=== PATIENT | male | born 2000 | race Caucasian/White ===

== ENCOUNTER 2020-03-29 16:21 | Emergency (ER) | payer MEDICAID, SELFPAY ==
[2020-03-29 16:23] VITALS: BP 145/85; PULSE 108; RESP 16; TEMP 36.6; O2SAT 96; BMI 40.1
--- NOTE | 2020-03-29 16:56 | ED.VIS.GEN ---
History of Present Illness Chief Complaint: Cellulitis Informant: Patient Onset: Days - 3 Narrative: 3 days worsening cellulitis and swelling left side after popping a pimple. States yesterday had a temp 99.7 he was seen in [place] ED. He states they started him on Bactrim. He was told to self extract at home states yesterday did extract more pus and yellow fluid. Status post 3 doses of Bactrim states symptoms worsening. No fevers today. He states he was diagnosed with MRSA a year ago and was in the hospital. Denies any other past medical history. Prior similar symptoms: Yes Past Medical History - Allergies and Home Meds Allergies/Adverse Reactions: Allergies No Known Allergies Allergy (Verified 03/29/20 16:22) Primary Care Physician: NOT,DEFINED [NON-STAFF] - Past Medical History: - - MRSA Smoking Status: Current every day smoker Review of Systems General: Denies: Chills, Fever, Sweats Eyes: Denies: Visual changes - bilaterally, Diplopia ENT: Reports: - - Left facial swelling. Denies: Rhinorrhea, Sore throat Cardiovascular: Denies: Chest pain, Palpitations Respiratory: Denies: Dyspnea, Cough, Dyspnea on exertion Gastrointestinal: Denies: Abdominal pain, Nausea, Vomiting, Diarrhea, Melena, Hematochezia Genitourinary: Denies: Dysuria, Hematuria, Frequency Musculoskeletal: Denies: Back pain, Extremity Pain Skin: Denies: Rash, Wounds Neurological: Denies: Headache, Weakness, Numbness Physical Exam Vital Signs/Narrative: Vital Signs Temp Pulse Resp BP Pulse Ox 03/29/20 16:23 97.9 F 108 H 16 145/85 H 96 Inital Vital Signs reviewed: Yes General: Well nourished, Well developed, No Acute Distress Head: Normocephalic, Atraumatic, - - Left maxillary 2 cm induration with the open comedone inferior this maxillary above the lip line. There is no active drainage. There is swelling to the inferior medial aspect of the eye with no fluctuance. No erythema in this area. Eyes: Perrl, EOMI ENT: Moist mucous membranes, No rhinorrhea Neck: Supple, Nontender Cardiovascular: Regular rhythm, No murmurs, Tachycardia Respiratory: No distress, CTA bilaterally, Chest nontender Abdomen: Soft, Nontender, Nondistended, Normal bowel sounds Back: Nontender, Normal Inspection Extremities: Nontender, No edema Skin: Normal color, No rash Neurological: Alert, Oriented x3, Cranial nerves II-XII grossly intact, Normal Strength, Normal Sensation Psychological: Normal affect, Normal Mood Diagnostic/Tx/Re-eval - Medical Decision Making Patient nontoxic there is slight tachycardia on arrival he is afebrile in the ED. Status post 3 doses of Bactrim. Discussed additional needle aspiration to create a track for which she agreed. He is not a diabetic not immunocompromised. History of MRSA, discussed with patient Bactrim covers for this. Discussed optimizing antibiotics due to slight worsening of symptoms were Keflex was added. He agrees. Needle aspiration performed there was no exudative drainage, he request additional I&D with 11 blade he understand the scarring risk due to having one a year ago and multiple ones on his arms. Straight incision was made at the level of the aspiration with no exudative return. Patient will finish his Bactrim Keflex will be added strict return precautions. All questions were answered. Procedure note: Verbal consent. Normal sterile conditions. Betadine prep was performed. 2 cc 1% lidocaine used for local analgesia. 18-gauge needle advanced 1 inch at 2:00 12:00 and 10:00 positions with no drainage. 11 blade with straight incision with no exudative drainage there was slight dark blood which was controlled. Patient tolerated procedure well. ED Disposition - Plan for ED Patient: Disposition: Home or Assisted Living Diagnosis: Left facial cellulitis Instructions: Cellulitis, ED Abscess Incision And Drainage Prescriptions: Cephalexin [Keflex] 500 mg PO Q6 #40 cap Transmission Status: Pending to [facility]/pharmacy #[id number] Referrals: NOT,DEFINED [NON-STAFF] - Geraldo Leach MD [NON-STAFF] - 3-5 Days
[2020-03-29] MEDS: Cephalexin 250 MG Capsule 500 MG PO (16:59)
[2020-03-29] MEDS: Lidocaine 1% (20 ml mdv) 20 ML Vial INFILT (16:59)
[2020-03-29 18:13] VITALS: BP 138/85; PULSE 95; RESP 16; O2SAT 97
== END 2020-03-29 18:14 | disposition home or self-care (01) ==
PROVIDERS: Emergency Provider Emergency Medicine
DX: L03.211 Cellulitis of face (principal); Z86.14 Personal history of Methicillin resistant Staphylococcus aureus infection; F17.200 Nicotine dependence, unspecified, uncomplicated
CPT/HCPCS: 10060; 99282

== ENCOUNTER 2023-06-30 16:51 | Emergency (ER) | payer MEDICAID, SELFPAY ==
[2023-06-30 16:51] VITALS: BP 143/97; PULSE 92; RESP 17; TEMP 36.1; O2SAT 98; BMI 35.9
--- NOTE | 2023-06-30 17:16 | EDS_ITS ---
<Statement entered by Irina Watts MD - 06/30/23 21:44> I have personally performed a face to face assessment of the patient and have reviewed the POP Note. Patient presents secondary to left hand injury. He became upset and punched a mirror with his left hand. He has some small lacerations along with bony tenderness. Patient sitting upright in bed no acute distress. Left upper extremity examination reveals multiple small superficial lacerations on his hand, however a 0.5 cm lack at the fourth MCP joint is more significant. Patient is able to fully flex and extend at the joint. Wound does not gape. He has good cap refill and sensation distally. Left hand x-rays revealed no evidence of radiopaque foreign body. No evidence of fracture. Wound at the fourth MCP is cleansed and sealed with Dermabond. Dressing applied. Return instructions given. HPI History of Present Illness Chief Complaint: Upper Extremity Injury Narrative Narrative: Patient presenting today with an injury to his left hand that he sustained this afternoon. He reports, my mirror was talking shit so I punched it. He reports that he had gotten upset over something and decided to punch his mirror. He has a small laceration over the fourth MCP joint. Tetanus is not up-to-date. He denies any other injury. PFSH PFSH Allergy/AdvReac Type Severity Reaction Status Date / Time No Known Allergies Allergy Verified 03/29/20 16:22 Social History Smoking Status: Current every day smoker tobacco type: cigarettes and e- cigarettes ROS ROS ED Constitutional Constitutional ED: Denies chills or fever(s) Cardiovascular Cardiovascular: Denies chest pain Respiratory/Chest Respiratory/Chest: Denies cough or dyspnea Musculoskeletal Musculoskeletal: Reports arthralgias Integumentary Reports Abrasions Neurologic Neurologic: Denies paresthesias EXAM Physical Exam Const Vital Signs: 06/30/23 16:51 Temperature 96.9 F L Temperature Source Temporal Pulse Rate 92 Respiratory Rate 17 Blood Pressure 143/97 H Blood Pressure Mean 112 Pulse Ox 98 Oxygen Delivery Method Room Air Positive well nourished, well developed and no apparent distress General Appearance ED: well developed HEENT Reports normocephalic and head/scalp atraumatic Mouth ED: Yes moist mucous membranes normal Eyes PERRL and EOMs intact bilaterally Neck full ROM and supple Chest Wall inspection of chest normal Resp normal respiratory effort and clear to auscultation bilaterally Cardio regular rate and regular rhythm GI soft to palpation, non-tender, non-distended and no masses Back/Spine normal ROM and normal to inspection Extremity normal to inspection and full ROM Extremity Narrative: Full flexion extension at the left MCP, PIP, DIP joints. Small superficial 0.5 cm laceration over the dorsal aspect of the left MCP joint. Left radial pulse 2+, good capillary refill, sensation intact. Neuro oriented x3, CN's II-XII intact bilaterally, moves all extremities, no focal motor deficits and no sensory deficits noted Sensorium / Orientation: awake and alert Psych mental status grossly normal and thought process normal Skin no rashes or lesions noted and no wounds MDM MDM MDM Narrative Medical decision making narrative: Patient presenting due to a left hand injury that occurred this evening after punching his mirror. X-ray will be obtained to rule out foreign body and fracture. Tetanus will be updated. X-ray negative for any acute findings. Small superficial laceration over the left fourth MCP joint, this was cleaned, it is not gaping and is superficial in nature, therefore Dermabond was used to repair the wound after it was cleaned with chlorhexidine. Patient tolerated procedure well. Wound care instructions discussed. Patient be discharged home in stable condition. Procedures Lacerations Laceration: Length: 0.5 cm Depth: Skin Shape: Linear Prep: Chlorhexadine Laceration repair: Dermabond, Irrigated and Wound explored Discharge Plan Triage Chief Complaint: Upper Extremity Injury ED Midlevel Provider: Mee Cardoso ED Provider: Irina Watts Dx/Rx/DC Orders Clinical Impression: Abrasion of hand, Contusion of hand, left Instructions: ED Abrasion, ED Hand Contusion Primary Care Provider: Care Physician,No Primary Referrals: Care Physician,No Primary [Primary Care Provider] - Activity Restrictions/Additional Instructions: Follow-up with your PCP return for any signs of infection. Disposition Disposition: Home, Self Care
--- NOTE | 2023-06-30 17:25 | RAD_ITS ---
EXAM: XR LEFT HAND COMPLETE, 3 OR MORE VIEWS CLINICAL INDICATION: PAIN S/P PUNCHING INJURY TECHNIQUE: Frontal, lateral and oblique views of the left hand. COMPARISON: No relevant prior studies available. FINDINGS: BONES/JOINTS: Unremarkable. No acute fracture. No subluxation. Normal alignment. Preservation of the joint space. No sclerotic or destructive changes observed. SOFT TISSUES: Unremarkable. No soft tissue swelling or gas. No radiopaque foreign body. RAD/Hand Min 3 Views IMPRESSION: Negative left hand x-rays. Electronically Signed: Agusto Arellano MD at 18:11 EDT Reading Location ID and State: [facility] / [place] , Service support ,
[2023-06-30] MEDS: Diphth,Pertuss(Acell),Tet Vac 0.5 ML Vial IM (17:31)
[2023-06-30 18:31] VITALS: BP 130/65; PULSE 69; RESP 14; TEMP 37.1; O2SAT 100
== END 2023-06-30 18:32 | disposition home or self-care (01) ==
PROVIDERS: Emergency Provider Emergency Medicine; Visit Provider Emergency Medicine
DX: S61.412A Laceration without foreign body of left hand, initial encounter (principal); F17.210 Nicotine dependence, cigarettes, uncomplicated; S60.222A Contusion of left hand, initial encounter; W25.XXXA Contact with sharp glass, initial encounter; W22.09XA Striking against other stationary object, initial encounter; F17.290 Nicotine dependence, other tobacco product, uncomplicated; Z23 Encounter for immunization
CPT/HCPCS: 12001; 73130; 90715; 99284

== ENCOUNTER 2023-08-21 23:59 | Emergency (ER) | payer MEDICAID, SELFPAY ==
[2023-08-22] VITALS: BP 152/92; PULSE 94; RESP 18; TEMP 36.3; O2SAT 98; BMI 35.6
--- NOTE | 2023-08-22 00:16 | ED.VIS.DENTA ---
HPI History of Present Illness Chief Complaint: Dental Informant: patient Onset/Context/Timing Onset: Days Narrative Narrative: Patient present secondary to bilateral lower dental pain. He states that he has a molar on the left mandibular surface that has been broken for quite some time. It became painful over the last several days. He also had a tooth on the right mandibular surface that just recently broke and has become painful. He feels that the pain is right down into his neck on the right. He states he called a couple dentist to be seen but was told he needed to be on antibiotics first. PFSH PFS Medical History no medical history no medical history Home Medications ?Medication ?Instructions ?Recorded ?Last Taken ?Type naproxen 500 mg tablet 500 mg PO BID PRN #20 tabs 08/22/23 Unknown Rx penicillin V potassium 500 mg 500 mg PO 4X/DAY #40 tabs 08/22/23 Unknown Rx tablet Allergy/AdvReac Type Severity Reaction Status Date / Time No Known Allergies Allergy Verified 08/22/23 00:00 Social History Smoking Status: Current every day smoker tobacco type: cigarettes and e-cigarettes ROS ROS ED Constitutional Constitutional ED: Denies chills or fever(s) Eyes Eyes: Denies discharge from eye(s) ENT ENT ED: Denies discharge from eye(s), rhinorrhea or sore throat Cardiovascular Cardiovascular: Denies chest pain Respiratory/Chest Respiratory/Chest: Denies cough or dyspnea Gastrointestinal Gastrointestinal: Denies abdominal pain, nausea or vomiting Musculoskeletal Musculoskeletal: Denies back pain or extremity pain Integumentary Denies Abrasions or rash Neurologic Neurologic: Denies headache(s) or weakness Psychiatric Psychiatric: Denies anxiety or depression Allergic/Immunologic Allergic/Immunologic ED: Denies lip swelling or urticaria EXAM Physical Exam Const Vital Signs: 08/22/23 00:00 08/22/23 00:30 Temperature 97.3 F L 98.7 F Temperature Source Temporal Pulse Rate 94 74 Respiratory Rate 18 16 Blood Pressure 152/92 H 150/79 H Blood Pressure Mean 112 102 Pulse Ox 98 99 Oxygen Delivery Method Room Air Positive well nourished and well developed General Appearance ED: well developed HEENT HEENT Narrative: No facial edema or erythema. Intraoral examination reveals that the left first mandibular molar in the right second mandibular molar are tender to palpation. No significant surrounding gum edema. Posterior pharynx exam unremarkable. Eyes PERRL and EOMs intact bilaterally Neck Neck Narrative: Mild bilateral anterior cervical lymphadenopathy. Chest Wall inspection of chest normal and palpation of chest normal Resp normal respiratory effort and clear to auscultation bilaterally Cardio regular rate and regular rhythm GI non-tender Palpation: soft Extremity normal to inspection Neuro oriented x3 and moves all extremities Psych mental status grossly normal Skin no rashes or lesions noted MDM MDM MDM Narrative Medical decision making narrative: Patient given Pen-Vee K and a prescription for naproxen. Dental referral list also provided for him. He was advised not to use ibuprofen or Aleve [id number] in addition to the prescription. Discharge Plan Triage Chief Complaint: Dental ED Provider: Irina Watts Dx/Rx/DC Orders Clinical Impression: Pain, dental Instructions: ED Dental Pain, ED Dental Abscess Prescriptions: New penicillin V potassium 500 mg tablet 500 mg PO 4X/DAY Qty: 40 0RF naproxen 500 mg tablet 500 mg PO BID PRN Qty: 20 0RF Primary Care Provider: Care Physician,No Primary Referrals: Care Physician,No Primary [Primary Care Provider] - Print Language: Salvadorean Disposition Disposition: Home, Self Care Discharge Date/Time: 08/22/23 00:33
[2023-08-22] MEDS: Penicillin Vk 250 MG Tablet 500 MG PO (00:26)
[2023-08-22 00:30] VITALS: BP 150/79; PULSE 74; RESP 16; TEMP 37.1; O2SAT 99
== END 2023-08-22 00:33 | disposition home or self-care (01) ==
LOC: ED 08-22 00:32
PROVIDERS: Emergency Provider Emergency Medicine; Visit Provider Emergency Medicine
DX: K08.89 Other specified disorders of teeth and supporting structures (principal); F17.210 Nicotine dependence, cigarettes, uncomplicated; F17.290 Nicotine dependence, other tobacco product, uncomplicated
CPT/HCPCS: 99282